=== PATIENT | male | born 1935 | race Caucasian/White ===

== ENCOUNTER → 2020-05-22 | Outpatient (CLI) | payer OTHER ==
[~2020-05-22] MED LIST: ACCUNEB SO1.25 MG/1 PO; ACCUNEB0.63 MG/3 INH; ACETAMINOPHEN325 M1 PO; AEROBID7 GM SPRAY; ALBUTEROL2.5 MG/0.1 INH; AMLODIPINE BESY10 MG PO; ANASPAZ0.125 MG SUBLING; ARTIFICIAL TEAR15 M3 OPHTHALMIC; ASMANEX0.135 G1 INH; ASPIRIN325 PO; ATENOLOL 50 MG50 M1 PO; AUGMENTIN 875875 M1 PO; B12INJ IM; BACLOFEN 10 MG10 MG PO; CAPSAICIN PO; CAPSAICIN60 GM TRANSDERM; CIPROFLOXACIN500 M1 PO; DEPO-TESTO100 MG/1 M IM; FINASTERIDE5 MG PO; FLUNISOLIDE25 M1 NASAL; FOLIC ACID1 MG PO; HYDRALAZINE 2525 M1 PO; HYDROCHLOROTHIA25 M1 PO; HYDROCODON-ACE1 EA12 PO; HYDROCODON-ACE1 EAC1 PO; IRON159 MG PO; LISINOPRIL40 MG PO; LOSARTAN POTASS50 MG PO; METHOCARBAMOL750 MG PO; MULTIVITAMINS PO; NORCO 5-325 TA1 EACH PO; OMEPRAZOLE 20 M20 MG PO; PROVENTIL HFA6.7 G1 INH; QUESTRAN LIGHT P4 GM PO; SPIRIVA INH; SULFASALAZINE500 M5 PO; SYMBICORT160 MCG/4. INH; THERA TEARS1 EAC1 OPHTHALMIC; VITAMIN B-12100 MC1 IM; VITAMIN D1000 UNI1 PO; VITAMIN D31000 UNI2 PO; [UNRECOGNIZED DRUG - OTHER] PO; [UNRECOGNIZED DRUG - OTHER] TRANSDERM
--- NOTE | 2020-05-22 12:19 | 2DMMODE ---
[facility] [place] [address] 2 D/M-MODE ECHOCARDIOGRAM Name: CHARI LONGORIA I Room #: REG [facility]#: [id number] Admission: 05/22/20 Attend Phys: Randy Medina MD Discharge: Date of : 39 Report #: [id number] THIS REPORT FOR: cc: Jaylan Nascimento Paul DO Lammoglia, Francisco J. MD ~ APPROVED REPORT Study performed: 05/22/2020 11:23:39 EXAM: Comprehensive 2D, Doppler, and color-flow Echocardiogram Patient Location: Out-Patient Status: routine BSA: 1.77 HR: 67 bpm BP: 116/74 mmHg Other Information Study Quality: Adequate Indications Atherosclerotic heart disease. 2D Dimensions RVDd: 37.38 mm IVSd: 12.97 (7-11mm) LVOT Diam: 21.80 (18-24mm) LVDd: 53.48 mm PWd: 12.14 (7-11mm) Ascending Ao: 32.07 (22-36mm) LVDs: 38.65 (25-40mm) Aortic Root: 36.41 mm Volumes Left Atrial Volume (Systole) Single Plane 4CH: 59.04 mL Single Plane 2CH: 86.25 mL LA ESV Index: 44.00 mL/m2 Aortic Valve AoV Peak Ever.: 1.80 m/s AO Peak Gr.: 12.94 mmHg LVOT Max P.36 mmHg LVOT Max V: 1.04 m/s EMILE Vmax: 2.17 cm2 Mitral Valve [facility] [address] [address] 2 D/M-MODE ECHOCARDIOGRAM Name: CHARI LONGORIA I Room #: REG [facility]#: [id number] Admission: 05/22/20 Attend Phys: Randy Medina MD Discharge: Date of : 39 Report #: [id number] MV Peak Gr.: 14.09 mmHg MV Mean Gr.: 6.88 mmHg E/A Ratio: 0.8 MV Decel. Time: 263.21 ms MV E Max Ever.: 1.17 m/s MV A Ever.: 1.45 m/s MV Max Ever.: 1.88 m/s MV Mean Ever.: 1.25 m/s MV VTI: 461.31 mm MV PHT: 76.33 ms IVRT: 59.98 ms Pulmonary Valve PV Peak Ever.: 1.12 m/s PV Peak Gr.: 5.06 mmHg Pulmonary Vein P Vein S: 0.50 m/s P Vein A: 0.24 m/s P Vein D: 0.48 m/s P Vein A Dur.: 133.8 msec P Vein S/D Ratio: 1.04 Tricuspid Valve TR Peak Ever.: 2.70 m/s RAP Estimate: 10.00 mmHg TR Peak Gr.: 29.27 mmHg PA Pressure: 39.00 mmHg Left Ventricle The left ventricle is normal size. There is normal LV segmental wall motion. Mild concentric left ventricular hypertrophy. Left ventricular systolic function is normal. LVEF is 55-60%. Mild diastolic dysfunction is present (impaired relaxation pattern). Right Ventricle The right ventricle is normal size. The right ventricular systolic function is normal. Atria Left atrium is dilated. The right atrium size is normal. Aortic Valve Aortic valve is calcified. No aortic regurgitation is present. There is no aortic valvular stenosis. Mitral Valve Mitral valve leaflets are calcified. Moderate mitral annular calcification. Mild to moderate mitral regurgitation. Moderate mitral stenosis. (Peak gradient of 14mmHg; Mean gradient 7mmHg). [address] [address] 2 D/M-MODE ECHOCARDIOGRAM Name: CHARI LONGORIA I Room #: REG [facility]#: [id number] Admission: 05/22/20 Attend Phys: Randy Medina MD Discharge: Date of : 39 Report #: [id number] Tricuspid Valve The tricuspid valve is normal in structure. Mild tricuspid regurgitation. Estimated PAP is 35-40mmHg. Pulmonic Valve The pulmonary valve is normal in structure. Trace pulmonic regurgitation. Great Vessels The aortic root is normal in size. The ascending aorta is normal in size. IVC is dilated and collapses <50% with inspiration. Pericardium There is no pericardial effusion. <Conclusion> The left ventricle is normal size. The left ventricle is normal size. LVEF is 55-60%. Left atrium is dilated. Aortic valve is calcified. Mitral valve leaflets are calcified. Moderate mitral annular calcification. Mild to moderate mitral regurgitation. Moderate mitral stenosis. (Peak gradient of 14mmHg; Mean gradient 7mmHg). The tricuspid valve is normal in structure. Mild tricuspid regurgitation. Estimated PAP is 35-40mmHg. The pulmonary valve is normal in structure. Trace pulmonic regurgitation. There is no pericardial effusion. <ELECTRONICALLY SIGNED> By: Sumanth Macario MD 05/22/20 1218 17 17 Sumatnh Macario MD /INF
== END ==
LOC: CV 10:45
PROVIDERS: ATTEND Orthopaedic Surgery
DX: I08.3 Combined rheumatic disorders of mitral, aortic and tricuspid valves (principal); I25.10 Atherosclerotic heart disease of native coronary artery without angina pectoris